=== PATIENT | male | born 1950 | race Caucasian/White ===

== ENCOUNTER → 2016-09-29 | Outpatient (CLI) | payer MEDICARE, OTHER ==
--- NOTE | 2016-09-29 08:46 | RAD ---
EXAM: Abdomen sonogram. HISTORY: Hepatitis C. TECHNIQUE: Sonographic imaging of the abdomen was performed. COMPARISON: 08/13/2015. FINDINGS: The liver is normal in size. There is hepatic steatosis. No focal hepatic lesion is seen. The gallbladder is unremarkable. The common bile duct is normal in caliber, measuring 4 mm. The kidneys are normal in size. The pancreas is obscured due to bowel gas. There are splenic granulomas. The spleen is normal in size. The aorta is normal in caliber. The inferior vena cava is patent. IMPRESSION: Hepatic steatosis. No focal hepatic lesion is seen.
[2016-09-29 09:38] LABS: DIRECT BILIRUBIN 0.2 mg/dL (0.0-0.2); TOTAL BILIRUBIN 0.7 mg/dL (0.2-1.0); TOTAL PROTEIN 8.4 g/dL (6.4-8.2)
== END | disposition home or self-care (01) ==
LOC: US 07:32
PROVIDERS: ATTEND Internal Medicine Gastroenterology
DX: K76.0 Fatty (change of) liver, not elsewhere classified (principal); B19.20 Unspecified viral hepatitis C without hepatic coma; L92.8 Other granulomatous disorders of the skin and subcutaneous tissue
CPT/HCPCS: 36415; 76700; 80076; 82105